=== PATIENT | female | born 1960 | race Caucasian/White ===

== ENCOUNTER → 2016-10-31 | Outpatient (CLI) | payer OTHER | LOC: OD 12:16 | PROVIDERS: ATTEND Physician Assistant | DX: E11.9 Type 2 diabetes mellitus without complications (principal); M19.072 Primary osteoarthritis, left ankle and foot ==

== ENCOUNTER → 2017-03-07 | Outpatient (CLI) | payer OTHER ==
--- NOTE | 2017-03-07 11:08 | WOMENS IMAGING REPORT ---
EXAM DESCRIPTION: BILAT SCREENING MAMMO W/CAD COMPLETED DATE/TIME: 03/07/2017 10:08 am REASON FOR STUDY: ROUTINE SCREENING; Z12.31 Z12.31 ENCNTR SCREEN MAMMOGRAM FOR MALIGNANT NEOPLASM O F RADHA COMPARISON: Multiple since 2008 TECHNIQUE: Standard craniocaudal and mediolateral oblique views of each breast recorded using Ti Knighta l acquisition. LIMITATIONS: None. FINDINGS: Findings present which are benign by mammographic criteria. No suspicious masses, calcifi cations or architectural distortion. Pertinent benign findings: Stable bilateral breast parenchymal calcifications, stable small bilateral breast parenchymal cysts or intramammary lymph nodes. Read with the assistance of CAD. .[facility] - R2 Cenova Version 1.3 .[facility] - R2 Cenova Version 1.3 .[facility] - R2 Cenova Version 2.4 .[facility] - R2 Cenova Version 2.4 .[facility] - R2 Intermodal Owner Operator Truck Driver Version 9.2 Benign mammographic findings may include one or more of the following: Smooth masses, popcorn/rim/co arse calcifications, asymmetries, post-procedure changes, and lesions with long-standing stability. IMPRESSION: BENIGN MAMMOGRAPHIC FINDINGS. BIRADS 2 BREAST DENSITY: a. The breasts are almost entirely fatty. BIRAD: 2 BENIGN FINDING(S) RECOMMENDATION: ROUTINE SCREENING Please consider bilateral screening tomosynthesis in February 2018 COMMENT: The patient has been notified of the results by letter per MQSA requirements. Additional no tification policies are in place for contacting patient with suspicious or incomplete findings. Quality ID #[id number]: The [employer] recommends an annual screening mammogram for women aged 40 years or over. This facility utilizes a reminder system to ensure that all patients receive reminder letters, and/or direct phone calls for appointments. This includes reminders for routine scr eening mammograms, diagnostic mammograms, or other Breast Imaging Interventions when appropriate. Th is patient will be placed in the appropriate reminder system. The [employer] (ACR) has developed recommendations for screening MRI of the breast s in certain patient populations, to be used in conjunction with mammography. Breast MRI surveillanc e may be appropriate for women with more than 20% lifetime risk of developing breast cancer as deter mined by genetic testing, significant family history of the disease, or history of mantle radiation f or Hodgkins Disease. ACR Practice Guidelines 2008. TECHNICAL DOCUMENTATION: FINDING NUMBER: (1) ASSESSMENT: (1) JOB ID: [id number] [facility] [employer]- All Rights Reserved
== END ==
LOC: WI 09:50
PROVIDERS: ATTEND Physician Assistant
DX: Z12.31 Encounter for screening mammogram for malignant neoplasm of breast (principal)
CPT/HCPCS: 77067; G0202

== ENCOUNTER 2018-05-12 15:53 | Inpatient (IN) | payer MEDICARE, OTHER ==
[2018-05-12] MEDS ORDERED: MORPHINE SULFATE 10 MG/ML INJ IV PRN (16:35)
[2018-05-12] MEDS ORDERED: 1/2 NORMAL SALINE 1,000 ML IV PRN (16:37)
[2018-05-12] MEDS ORDERED: DEXTROSE 40% GEL 15 GM TUBE PO PRN ×5 (16:40→19:13)
[2018-05-12] MEDS ORDERED: GLUCAGON,HUMAN RECOMB 1 MG INJ IM PRN ×2 (16:40→17:28)
[2018-05-12] MEDS ORDERED: DEXTROSE 50%-WATER 25 GM/50 ML DISP.SYRIN IV PRN ×4 (16:40→19:13)
--- NOTE | 2018-05-12 16:48 | PDOC H&P ---
History of Present Illness Admission Date/PCP: 05/12/18 15:53 DOMINICK PONCE MD Patient complains of: Abdominal wall abscess History of Present Illness: GINA BIGGS is a 57 year old female 57 yo female presenting today with right ground abscess x 1 week. PMH HTN, HLD, DM, OA, immune disorder. R groin abscess. Patient states she has had intense itching in the groin area from Jardiance. She is unsure if she scratched herself or if it's from sweat accumulation. It has been getting worse and is now tender, warm, with white purulence. Denies any fever or other constitutional symptoms. She has tried warm compresses and Neosporin without any improvement. DM: Is being followed by measurement supervisor as A1c is 9.2 and not controlled. Was increased Lantus 50 to 58 BID. On Bydureon 2mg. Is supposed to also be on Jardiance, however, has not been taking it due to intense groin itching. All other chronic conditions are stable. Denies any chest pain, SOB, abdominal pain, or other symptoms. Patient seen by Dr. Theodora Mejia and decided to admit in the hospital for further surgical interventions Past Medical History Cardiac Medical History: Reports: Hyperlipidema, Hypertension Endocrine Medical History: Reports: Diabetes Mellitus Type 2 Musculoskeltal Medical History: Reports: Arthritis Past Surgical History Past Surgical History: Reports: Tubal Ligation Social History Information Source: Patient Smoking Status: Unknown if Ever Smoked Frequency of Alcohol Use: None Hx Recreational Drug Use: No Hx Prescription Drug Abuse: No Family History Family History: Reviewed & Not Pertinent Parental Family History Reviewed: Yes Children Family History Reviewed: Yes Sibling(s) Family History Reviewed.: Yes Medication/Allergy Allergies/Adverse Reactions: lisinopril Allergy (Unverified 05/12/18 16:27) Review of Systems Constitutional: ABSENT: chills, fever(s), headache(s), weight gain, weight loss Eyes: ABSENT: visual disturbances Ears: ABSENT: hearing changes Cardiovascular: ABSENT: chest pain, dyspnea on exertion, edema, orthropnea, palpitations Respiratory: ABSENT: cough, hemoptysis Gastrointestinal: ABSENT: abdominal pain, constipation, diarrhea, hematemesis, hematochezia, nausea, vomiting Genitourinary: ABSENT: dysuria, hematuria Musculoskeletal: ABSENT: joint swelling Integumentary: ABSENT: rash, wounds Neurological: ABSENT: abnormal gait, abnormal speech, confusion, dizziness, focal weakness, syncope Psychiatric: ABSENT: anxiety, depression, homidical ideation, suicidal ideation Endocrine: ABSENT: cold intolerance, heat intolerance, menstrual abnormalities, polydipsia, polyuria Hematologic/Lymphatic: ABSENT: easy bleeding, easy bruising, lymphadenopathy Physical Exam General appearance: PRESENT: no acute distress, well-developed, well-nourished Head exam: PRESENT: atraumatic, normocephalic Eye exam: PRESENT: conjunctiva pink, EOMI, PERRLA. ABSENT: scleral icterus Ear exam: PRESENT: normal external ear exam Mouth exam: PRESENT: moist, tongue midline Neck exam: PRESENT: full ROM. ABSENT: carotid bruit, JVD, lymphadenopathy, thyromegaly Respiratory exam: PRESENT: clear to auscultation mariann Cardiovascular exam: PRESENT: RRR. ABSENT: diastolic murmur, rubs, systolic murmur Pulses: PRESENT: normal dorsalis pedis pul, +2 pedal pulses bilateral Vascular exam: PRESENT: normal capillary refill GI/Abdominal exam: PRESENT: normal bowel sounds, soft. ABSENT: distended, guarding, mass, organolmegaly, rebound, tenderness Additonal comments: Right-sided abdominal wall significant redness swelling and a draining pus is present Rectal exam: PRESENT: deferred Extremities exam: ABSENT: pedal edema Musculoskeletal exam: PRESENT: ambulatory Neurological exam: PRESENT: alert, awake, oriented to person, oriented to place , oriented to time, oriented to situation, CN II-XII grossly intact. ABSENT: motor sensory deficit Psychiatric exam: PRESENT: appropriate affect, normal mood. ABSENT: homicidal ideation, suicidal ideation Skin exam: PRESENT: dry, intact, warm. ABSENT: cyanosis, rash Assessment & Plan - Diagnosis (1) Abdominal wall cellulitis Is this a current diagnosis for this admission?: Yes Plan: That the patient on IV antibiotic IV pain medications follow with the surgery (2) Type 2 diabetes mellitus Qualifiers: Diabetes mellitus roasterman insulin use: unspecified fpc insulin use status Is this a current diagnosis for this admission?: Yes Plan: Continues to current medication and sliding scale with [facility] protocol (3) Hypertension Qualifiers: Hypertension type: essential hypertension Qualified Code(s): I10 - Essential (primary) hypertension Is this a current diagnosis for this admission?: Yes Plan: Continues current medications (4) Hyperlipidemia Qualifiers: Hyperlipidemia type: unspecified Qualified Code(s): E78.5 - Hyperlipidemia , unspecified Is this a current diagnosis for this admission?: Yes (5) Morbid obesity Is this a current diagnosis for this admission?: Yes - Time Time Spent: 30 to 50 Minutes Medications reviewed and adjusted accordingly: Yes Anticipated discharge: Home Within: Other - Inpatient Certification Based on my medical assessment, after consideration of the patient's comorbidities, presenting symptoms, or acuity I expect that the services needed warrant INPATIENT care.: Yes I certify that my determination is in accordance with my understanding of Medicare's requirements for reasonable and necessary INPATIENT services [42 CFR 412.3e].: Yes Medical Necessity: Significant Comorbidiites Make Outpatient Treatment Too Risky , Need For IV Fluids, Need for IV Antibiotics Post Hospital Care: D/C Financial Services Technician Documentation - Plan Summary Plan Summary: Admit in the hospitalFollow with surgery
[2018-05-12 17:10] LABS: ABSOLUTE BASOPHILS # (AUTO) 0.1 10^3/uL (0.0-0.2); ABSOLUTE EOSINOPHILS # (AUTO) 0.3 10^3/uL (0.0-0.6); ABSOLUTE LYMPHOCYTES (AUTO) 2.3 10^3/uL (0.5-4.7); ABSOLUTE MONOCYTES (AUTO) 0.8 10^3/uL (0.1-1.4); ABSOLUTE NEUT (AUTO) 8.2 10^3/uL (1.7-8.2); BASOPHILS % (AUTO) 1.1 % (0-2); HEMATOCRIT 42.9 % (36.0-47.0); HEMOGLOBIN 14.2 g/dL (12.0-15.5); LYMPHOCYTES % (AUTO) 19.5 % (13-45); MEAN CORPUSCULAR HEMOGLOBIN 26.1 pg (27.0-33.4); MEAN CORPUSCULAR HGB CONC 33.2 g/dL (32.0-36.0); MEAN CORPUSCULAR VOLUME 79 fl (80-97); MONOCYTES % (AUTO) 7.2 % (3-13); PLATELET COUNT 313 10^3/uL (150-450); RED BLOOD COUNT 5.46 10^6/uL (3.72-5.28); RED CELL DISTRIBUTION WIDTH 15.1 % (11.5-14.0); SEGMENTED NEUTROPHILS % (AUTO) 69.2 % (42-78); TOTAL CELLS COUNTED % (AUTO) 100 %; WHITE BLOOD COUNT 11.8 10^3/uL (4.0-10.5)
[2018-05-12] MEDS ORDERED: DEXTROSE 50%-WATER SYRINGE 12.5 GM/25 ML DOSE IV PRN (17:28)
[2018-05-12] MEDS ORDERED: DEXTROSE 40% GEL 15 GM TUBE X 2 PO PRN (17:28)
[2018-05-12] MEDS ORDERED: DEXTROSE 50%-WATER SYRINGE 25 GM/50 ML DOSE IV PRN (17:28)
[2018-05-12 17:32] LABS: ALANINE AMINOTRANSFERASE 25 U/L (9-52); ALBUMIN 3.7 g/dL (3.5-5.0); ALKALINE PHOSPHATASE 82 U/L (38-126); ANION GAP 14 (5-19); ASPARTATE AMINO TRANSFERASE 17 U/L (14-36); BILIRUBIN,DIRECT 0.2 mg/dL (0.0-0.4); BILIRUBIN,TOTAL 0.6 mg/dL (0.2-1.3); BLOOD UREA NITROGEN 21 mg/dL (7-20); CALCIUM 9.6 mg/dL (8.4-10.2); CARBON DIOXIDE 26 mmol/L (22-30); CHLORIDE 101 mmol/L (98-107); GLUCOSE 124 mg/dL (75-110); POTASSIUM 3.9 mmol/L (3.6-5.0); SODIUM 141.3 mmol/L (137-145); TOTAL PROTEIN 6.7 g/dL (6.3-8.2)
--- NOTE | 2018-05-12 18:32 | EKG REPORT ---
SEVERITY:- ABNORMAL ECG - SINUS RHYTHM LEFT AXIS DEVIATION PROBABLE LEFT VENTRICULAR HYPERTROPHY CONSIDER ANTERIOR INFARCT BORDERLINE PROLONGED QT INTERVAL : Confirmed by: Paul Childs MD 12-May-2018 18:31:42
[2018-05-12] MEDS ORDERED: GLUCAGON,HUMAN RECOMB 1 MG INJ SUBCUT PRN (19:13)
[2018-05-12] MEDS: AMPICILLIN SODIUM/SULBACTAM NA 3 GM in NORMAL SALINE 100 ML IV SCH (19:19)
[2018-05-12 19:48] LABS: APPEARANCE,URINE CLEAR; BILIRUBIN,URINE NEGATIVE (NEGATIVE); COLOR,URINE STRAW; GLUCOSE, URINE NEGATIVE (NEGATIVE); KETONES,URINE NEGATIVE (NEGATIVE); LEUKOCYTE ESTERASE,URINE TRACE (NEGATIVE); NITRITE,URINE NEGATIVE (NEGATIVE); PROTEIN,URINE NEGATIVE (NEGATIVE); URINE SPECIFIC GRAVITY 1.008; UROBILINOGEN,URINE NEGATIVE mg/dL (<2.0)
[2018-05-12] MEDS: HYDROXYCHLOROQUINE SULFATE 200 MG TABLET PO SCH (22:42)
[2018-05-12] MEDS: INSULIN LISPRO 100 UNIT/ML 3 ML VIAL SUBCUT SCH (22:44)
[2018-05-13] MEDS: AMPICILLIN SODIUM/SULBACTAM NA 3 GM in NORMAL SALINE 100 ML IV SCH ×4 (00:20→17:38)
[2018-05-13] MEDS: INSULIN LISPRO 100 UNIT/ML 3 ML VIAL SUBCUT SCH ×3 (06:38→23:06)
[2018-05-13] MEDS ORDERED: ONDANSETRON HCL INJ/PF 4 MG/2 ML SDV ONE (08:31)
[2018-05-13] MEDS ORDERED: KETOROLAC TROMETHAMINE 60 MG/2 ML SDV ONE (08:31)
[2018-05-13] MEDS ORDERED: GLYCOPYRROLATE 1 MG/5 ML SYRINGE ONE (08:31)
[2018-05-13] MEDS ORDERED: METOCLOPRAMIDE HCL INJ/PF 10 MG/2 ML SDV ONE (08:31)
[2018-05-13] MEDS: INSULIN GLARGINE,HUM.REC.ANLOG 300 UNIT/3 ML INSULN.PEN SUBCUT SCH (08:33)
[2018-05-13] MEDS ORDERED: (PENDING PHARMACY ID) (Fexofenadine Hcl [Allegra Allergy] 180 MG) PO SCH (10:00)
[2018-05-13] MEDS ORDERED: METOPROLOL SUCCINATE 50 MG TAB.SR.24H PO SCH (10:00)
[2018-05-13] MEDS ORDERED: (PENDING PHARMACY ID) (Empagliflozin [Jardiance] 25 MG) PO SCH (10:00)
[2018-05-13] MEDS: HYDROCHLOROTHIAZIDE 25 MG TABLET PO SCH (10:15)
[2018-05-13] MEDS: LORATADINE 10 MG TABLET PO SCH (10:15)
[2018-05-13] MEDS: METOPROLOL SUCCINATE 50 MG TAB.SR.24H PO SCH (10:16)
[2018-05-13] MEDS: HYDROXYCHLOROQUINE SULFATE 200 MG TABLET PO SCH ×2 (10:17→23:06)
--- NOTE | 2018-05-13 10:44 | PDOC PROGRESS REPORT ---
Subjective Progress Note for:: 05/13/18 Subjective:: Patient is feeling much better Patient's pain under control Scheduled for the surgery Reason For Visit: ENCOUNTER FOR OTHER PREPROCEDURAL EXAMINATION Physical Exam Vital Signs: Temp Pulse Resp BP Pulse Ox 97.7 F 81 16 121/73 92 05/13/18 07:55 05/13/18 07:55 05/13/18 07:55 05/13/18 07:55 05/13/18 07:55 Intake & Output 05/12/18 05/13/18 05/14/18 06:59 06:59 06:59 Intake Total 700 100 Output Total 1000 Balance -300 100 Weight 134.6 kg General appearance: PRESENT: no acute distress, well-developed, well-nourished Head exam: PRESENT: atraumatic, normocephalic Eye exam: PRESENT: conjunctiva pink, EOMI, PERRLA. ABSENT: scleral icterus Ear exam: PRESENT: normal external ear exam Mouth exam: PRESENT: moist, tongue midline Neck exam: PRESENT: full ROM. ABSENT: carotid bruit, JVD, lymphadenopathy, thyromegaly Respiratory exam: PRESENT: clear to auscultation mariann Cardiovascular exam: PRESENT: RRR. ABSENT: diastolic murmur, rubs, systolic murmur Pulses: PRESENT: normal dorsalis pedis pul, +2 pedal pulses bilateral Vascular exam: PRESENT: normal capillary refill GI/Abdominal exam: PRESENT: normal bowel sounds, soft. ABSENT: distended, guarding, mass, organolmegaly, rebound, tenderness Additonal comments: Right lower abdominal area redness Rectal exam: PRESENT: deferred Neurological exam: PRESENT: alert, awake, oriented to person, oriented to place , oriented to time, oriented to situation, CN II-XII grossly intact. ABSENT: motor sensory deficit Psychiatric exam: PRESENT: appropriate affect, normal mood. ABSENT: homicidal ideation, suicidal ideation Skin exam: PRESENT: dry, intact, warm. ABSENT: cyanosis, rash Results Laboratory Results: 05/12/18 16:05 05/12/18 16:05 05/12/18 05/12/18 05/12/18 16:05 16:05 19:25 WBC 11.8 H RBC 5.46 H Hgb 14.2 Hct 42.9 MCV 79 L MCH 26.1 L MCHC 33.2 RDW 15.1 H Plt Count 313 Seg Neutrophils % 69.2 Lymphocytes % 19.5 Monocytes % 7.2 Eosinophils % 3.0 Basophils % 1.1 Absolute Neutrophils 8.2 Absolute Lymphocytes 2.3 Absolute Monocytes 0.8 Absolute Eosinophils 0.3 Absolute Basophils 0.1 Sodium 141.3 Potassium 3.9 Chloride 101 Carbon Dioxide 26 Anion Gap 14 BUN 21 H Creatinine 1.07 Est GFR ( Amer) > 60 Est GFR (Non-Af Amer) 52 L Glucose 124 H Calcium 9.6 Total Bilirubin 0.6 AST 17 ALT 25 Alkaline Phosphatase 82 Total Protein 6.7 Albumin 3.7 Urine Color STRAW Urine Appearance CLEAR Urine pH 5.0 Ur Specific [place] 1.008 Urine Protein NEGATIVE Urine Glucose (UA) NEGATIVE Urine Ketones NEGATIVE Urine Blood NEGATIVE Urine Nitrite NEGATIVE Ur Leukocyte Esterase TRACE H Urine WBC (Auto) 2 Urine RBC (Auto) 1 Assessment & Plan - Diagnosis (1) Abdominal wall cellulitis Is this a current diagnosis for this admission?: Yes Plan: That the patient on IV antibiotic IV pain medications follow with the surgery (2) Type 2 diabetes mellitus Qualifiers: Diabetes mellitus technician terminal and repeater insulin use: unspecified technician terminal and repeater insulin use status Is this a current diagnosis for this admission?: Yes Plan: Continues to current medication and sliding scale with [facility] protocol (3) Hypertension Qualifiers: Hypertension type: essential hypertension Qualified Code(s): I10 - Essential (primary) hypertension Is this a current diagnosis for this admission?: Yes Plan: Continues current medications (4) Hyperlipidemia Qualifiers: Hyperlipidemia type: unspecified Qualified Code(s): E78.5 - Hyperlipidemia , unspecified Is this a current diagnosis for this admission?: Yes (5) Morbid obesity Is this a current diagnosis for this admission?: Yes - Time Time Spent with patient: 15-24 minutes Medications reviewed and adjusted accordingly: Yes Anticipated discharge: Other Within: Other - Inpatient Certification Based on my medical assessment, after consideration of the patient's comorbidities, presenting symptoms, or acuity I expect that the services needed warrant INPATIENT care.: Yes I certify that my determination is in accordance with my understanding of Medicare's requirements for reasonable and necessary INPATIENT services [42 CFR 412.3e].: Yes Medical Necessity: Need For IV Fluids, Need for IV Antibiotics, Need for Surgery Post Hospital Care: D/C Employment Recruiter Documentation - Plan Summary Plan Summary: Follow with the surgery continues to current medication
[2018-05-13] MEDS ORDERED: BUPIVACAINE HCL 0.5 % INJ/PF 30 ML SDV ONE (13:27)
[2018-05-13] MEDS ORDERED: LIDOCAINE 0.5% INJ-PF (5 MG/ML) 50 ML SDV ONE (13:27)
[2018-05-13] MEDS ORDERED: BACITRACIN INJ 50,000 UNIT VIAL ONE (13:27)
[2018-05-13] MEDS ORDERED: KETAMINE HCL INJ 500 MG/10 ML VIAL ONE (13:34)
[2018-05-13] MEDS ORDERED: LIDOCAINE 2% INJ-PF (20 MG/ML) 10 ML AMPUL ONE (13:34)
[2018-05-13] MEDS ORDERED: FENTANYL CITRATE INJ/PF 100 MCG/2 ML AMPUL ONE (13:34)
[2018-05-13] MEDS ORDERED: PROPOFOL INJ 200 MG/20 ML VIAL IV ONE ×2 (13:35)
[2018-05-13] MEDS ORDERED: MIDAZOLAM 2 MG/2 ML INJ ONE (13:35)
[2018-05-13] MEDS ORDERED: ACETAMINOPHEN 1,000 MG/100 ML RTUPB IV ONE (13:35)
--- NOTE | 2018-05-13 14:46 | Operative Report ---
Operative Report DATE OF SURGERY: 05/13/18 PREOPERATIVE DIAGNOSIS: 1. Abdominal wall abscess. 2. Obesity. 3. Diabetes mellitus type 2. 4. Hypertension. POSTOPERATIVE DIAGNOSIS: 1. Abdominal wall abscess. 2. Obesity. 3. Diabetes mellitus type 2. 4. Hypertension. OPERATION: Debridement of abdominal wall abscess. SURGEON: AUNDREA MORENO SPREADER: None. ANESTHESIA: LMAC TISSUE REMOVED OR ALTERED: Necrotic skin and subcutaneous tissues. COMPLICATIONS: None. ESTIMATED BLOOD LOSS: 5 mL. INTRAOPERATIVE FINDINGS: Indication: This patient, diabetic with increased body mass index has cellulitis and infected necrosis of the abdominal wall. It seems to be confined to the skin and subcutaneous tissues. Debridement is necessary with preparation for deeper debridement if it proves to involve deeper tissues. The goal is to avoid serious or morbid extension of infection. Findings: Of necrotic skin and subcutaneous tissues for a diameter of about 3 cm in the right lower abdomen. Situated on the pannus. Necrosis and infection extended to the subcutaneous tissues. After debridement the remaining tissues were healthy looking. No remaining necrosis or obvious infection. PROCEDURE: PROCEDURE: The abdomen was prepared with [Betadine] and draped out with sterile linen. After the"universal time-out", in which it was confirmed that the patient [did receive antibiotic], the procedure commenced. The patient was appropriately anesthetized. With local anesthesia to supplement sedation. The wound was probed. . The wound was debrided of non viable tissue using[ cautery] with removal of loose debris, as well. The wound was irrigated with [ Peroxide] .Cultures of tissue were now taken and sent.The wound was now irrigated with peroxide, then saline and [Surgicel] placed within it, dressed with [Kerlix] and the procedure concluded.
[2018-05-13] MEDS ORDERED: 1/2 NORMAL SALINE 1,000 ML IV PRN (15:00)
[2018-05-13] MEDS ORDERED: PROMETHAZINE HCL INJ 25 MG/1 ML VIAL IV PRN ×2 (15:20)
[2018-05-13] MEDS ORDERED: ONDANSETRON HCL INJ/PF 4 MG/2 ML SDV IV PRN (15:20)
[2018-05-13] MEDS ORDERED: MEPERIDINE HCL/PF INJ 25 MG/1 ML DISP.SYRIN IV PRN (15:20)
[2018-05-13] MEDS ORDERED: DIPHENHYDRAMINE HCL 50 MG/ML VIAL IV PRN (15:20)
[2018-05-13] MEDS ORDERED: FENTANYL CITRATE INJ/PF 100 MCG/2 ML AMPUL IV PRN ×3 (15:20)
[2018-05-14] MEDS: AMPICILLIN SODIUM/SULBACTAM NA 3 GM in NORMAL SALINE 100 ML IV SCH ×3 (01:41→11:49)
[2018-05-14] MEDS: INSULIN LISPRO 100 UNIT/ML 3 ML VIAL SUBCUT SCH ×2 (06:32→13:53)
[2018-05-14] MEDS: INSULIN GLARGINE,HUM.REC.ANLOG 300 UNIT/3 ML INSULN.PEN SUBCUT SCH (08:02)
[2018-05-14] MEDS: HYDROCHLOROTHIAZIDE 25 MG TABLET PO SCH (10:22)
[2018-05-14] MEDS: METOPROLOL SUCCINATE 50 MG TAB.SR.24H PO SCH (10:25)
[2018-05-14] MEDS: LORATADINE 10 MG TABLET PO SCH (10:25)
[2018-05-14] MEDS: HYDROXYCHLOROQUINE SULFATE 200 MG TABLET PO SCH (10:25)
--- NOTE | 2018-05-14 12:12 | PDOC DISCHARGE SUMMARY ---
General - Admit/Disc Date/PCP Admission Date/Primary Care Provider: 05/12/18 15:53 DOMINICK PONCE MD Discharge Date: 05/14/18 - Discharge Diagnosis (1) Abdominal wall cellulitis Is this a current diagnosis for this admission?: Yes Summary: Status post incision and drainage follow with the general surgery continues to p.o. antibiotic (2) Type 2 diabetes mellitus Is this a current diagnosis for this admission?: Yes Summary: Currently all stable continues to current medications (3) Hypertension Is this a current diagnosis for this admission?: Yes Summary: Currently all stable cut down the dose of the matter probably due to the patient 's blood pressures in the lower end (4) Hyperlipidemia Is this a current diagnosis for this admission?: Yes Summary: Currently all stable (5) Morbid obesity Is this a current diagnosis for this admission?: Yes - Additional Information Resuscitation Status: Full Code Discharge Activity: Activity As Tolerated Prescriptions: Amox Tr/Potassium Clavulanate [Augmentin 875-125 mg Tablet] 1 tab PO BID #14 tablet L. Acidophilus/L.bulgaricus [Lactobacillus Tablet] 1 each PO BID #14 tablet Home Medications: Exenatide Microspheres [Bydureon Pen] 2 mg SQ TH@10 05/12/18 Fexofenadine HCl [Tianna Allergy] 180 mg PO DAILY 05/12/18 Hydroxychloroquine Sulfate [Plaquenil 200 mg Tablet] 200 mg PO Q12 05/12/18 Insulin Glargine,Hum.rec.anlog [Lantus Solostar] 58 unit SQ QHS 05/12/18 Amox Tr/Potassium Clavulanate [Augmentin 875-125 mg Tablet] 1 tab PO BID #14 tablet 05/14/18 L. Acidophilus/L.bulgaricus [Lactobacillus Tablet] 1 each PO BID #14 tablet 01/22 Metoprolol Succinate [Toprol Xl 50 mg Tab.sr] 25 mg PO DAILY #0 05/14/18 History of Present Illness History of Present Illness: GINA BIGGS is a 57 year old female 57 yo female presenting today with right ground abscess x 1 week. PMH HTN, HLD, DM, OA, immune disorder. R groin abscess. Patient states she has had intense itching in the groin area from Jardiance. She is unsure if she scratched herself or if it's from sweat accumulation. It has been getting worse and is now tender, warm, with white purulence. Denies any fever or other constitutional symptoms. She has tried warm compresses and Neosporin without any improvement. DM: Is being followed by oversize load pilot escort as A1c is 9.2 and not controlled. Was increased Lantus 50 to 58 BID. On Bydureon 2mg. Is supposed to also be on Jardiance, however, has not been taking it due to intense groin itching. All other chronic conditions are stable. Denies any chest pain, SOB, abdominal pain, or other symptoms. Patient seen by Dr. Theodora Mejia and decided to admit in the hospital for further surgical interventions Hospital Course Hospital Course: This is a 57-year-old female present in the office because of the abdominal wall cellulitis and abscess and patient was directly admitting in the hospital from the surgical office and underwent for the incision and drainage and patient is currently doing much better Patient was initially put on IV antibiotics and the patient stopped the surgeries switch to the p.o. antibiotic and according to the surgeon Dr. Theodora Johnston patients can discharge her following office tomorrow with him to dressing change And also expressed to go Ló[place] while she is doing better patient's p.o. intake is fair patients walk around in the hallway without any problems patient's remained afebrile blood work is all stable Patient is discharged home with the stable conditions follow outpatient in 1 week in my office patient also see oversize load pilot escort as outpatient Physical Exam Vital Signs: Temp Pulse Resp BP Pulse Ox 97.4 F 72 16 112/64 90 L 05/14/18 00:19 05/14/18 00:19 05/14/18 00:19 05/14/18 00:19 05/14/18 00:19 Intake & Output 05/13/18 05/14/18 05/15/18 06:59 06:59 06:59 Intake Total 700 1621 100 Output Total 1000 2060 Balance -300 -439 100 Weight 134.6 kg 134.6 kg General appearance: PRESENT: no acute distress, well-developed, well-nourished Head exam: PRESENT: atraumatic, normocephalic Eye exam: PRESENT: conjunctiva pink, EOMI, PERRLA. ABSENT: scleral icterus Ear exam: PRESENT: normal external ear exam Mouth exam: PRESENT: moist, tongue midline Neck exam: PRESENT: full ROM. ABSENT: carotid bruit, JVD, lymphadenopathy, thyromegaly Respiratory exam: PRESENT: clear to auscultation mariann Cardiovascular exam: PRESENT: RRR. ABSENT: diastolic murmur, rubs, systolic murmur Pulses: PRESENT: normal dorsalis pedis pul, +2 pedal pulses bilateral Vascular exam: PRESENT: normal capillary refill GI/Abdominal exam: PRESENT: normal bowel sounds, soft. ABSENT: distended, guarding, mass, organolmegaly, rebound, tenderness Additonal comments: Abdominal wall on the right side the dressing is intact Rectal exam: PRESENT: deferred Extremities exam: ABSENT: pedal edema Musculoskeletal exam: PRESENT: ambulatory Neurological exam: PRESENT: alert, awake, oriented to person, oriented to place , oriented to time, oriented to situation, CN II-XII grossly intact. ABSENT: motor sensory deficit Psychiatric exam: PRESENT: appropriate affect, normal mood. ABSENT: homicidal ideation, suicidal ideation Skin exam: PRESENT: dry, intact, warm. ABSENT: cyanosis, rash Results Laboratory Results: 05/12/18 16:05 05/12/18 16:05 Qualifiers - * PATIENT BEING DISCHARGED WITH ANY OF THE FOLLOWING DIAGNOSIS: No VTE patient discharged on overlapping Therapy?: Yes Plan Time Spent: Greater than 30 Minutes - Follow with the general surgery tomorrow morning continues to current medications continues to p.o. antibiotic
[2018-05-14 13:36] VITALS: BP 127/64
[2018-05-15] MEDS ORDERED: (PENDING PHARMACY ID) (Exenatide Microspheres [Bydureon Pen] 2 MG) SQ SCH (10:00)
--- NOTE | 2018-06-05 13:11 | OPERATIVE REPORT E ---
Operative Report NAME: GINA BIGGS : 1960 AGE: 57Y DATE OF SURGERY: 05/13/2018 ROOM: [id number] ADDENDUM: OPERATIVE PROCEDURE: Sharp, excisional, surgical debridement of abdominal wall wound. DICTATING PHYSICIAN: AUNDREA PUENTES M.D. [id number] PHY#: [id number] ID: [id number] JOB#: [id number] ACCT: [id number] cc:AUNDREA PUENTES M.D. >
== END 2018-05-14 14:40 | disposition home or self-care (01) | DRG 571 ==
LOC: 4N 15:53
PROVIDERS: ADMIT Family Medicine; ATTEND Family Medicine
PROC: 0JB80ZZ Excision of Abdomen Subcutaneous Tissue and Fascia, Open Approach (ICD-10-PCS; principal; 2018-05-13 13:45)
PROC: 3E02340 Introduction of Influenza Vaccine into Muscle, Percutaneous Approach (ICD-10-PCS; 2018-05-14)
DX: L03.311 Cellulitis of abdominal wall (principal); Z68.41 Body mass index [BMI] 40.0-44.9, adult; I96 Gangrene, not elsewhere classified; E11.628 Type 2 diabetes mellitus with other skin complications; L02.211 Cutaneous abscess of abdominal wall; M19.90 Unspecified osteoarthritis, unspecified site; I10 Essential (primary) hypertension; E11.65 Type 2 diabetes mellitus with hyperglycemia; E78.5 Hyperlipidemia, unspecified; T38.3X6A Underdosing of insulin and oral hypoglycemic [antidiabetic] drugs, initial encounter; E66.01 Morbid (severe) obesity due to excess calories; Z79.84 Long term (current) use of oral hypoglycemic drugs; Z23 Encounter for immunization; Z91.128 Patient's intentional underdosing of medication regimen for other reason
CPT/HCPCS: 36415; 400; 80048; 80076; 81001; 82962; 85025; 87070; 87075; 87077; 87186; 87205; 90471; 90686; 93005; 93010; G0008; G0378; G0379; J0131; J0295; J1815; J1885; J2250; J2405; J2704; J2765; J3010; J3490

== ENCOUNTER → 2018-05-12 | Outpatient (CLI) | payer MEDICARE, OTHER ==
[2018-05-12 12:33] LABS: ABSOLUTE BASOPHILS # (AUTO) 0.1 10^3/uL (0.0-0.2); ABSOLUTE EOSINOPHILS # (AUTO) 0.3 10^3/uL (0.0-0.6); ABSOLUTE LYMPHOCYTES (AUTO) 2.3 10^3/uL (0.5-4.7); ABSOLUTE MONOCYTES (AUTO) 0.7 10^3/uL (0.1-1.4); ABSOLUTE NEUT (AUTO) 7.7 10^3/uL (1.7-8.2); BASOPHILS % (AUTO) 1.1 % (0-2); EOSINOPHILS % (AUTO) 2.8 % (0-6); HEMOGLOBIN 14.6 g/dL (12.0-15.5); LYMPHOCYTES % (AUTO) 20.9 % (13-45); MEAN CORPUSCULAR HEMOGLOBIN 26.3 pg (27.0-33.4); MEAN CORPUSCULAR HGB CONC 33.2 g/dL (32.0-36.0); MEAN CORPUSCULAR VOLUME 79 fl (80-97); MONOCYTES % (AUTO) 6.3 % (3-13); PLATELET COUNT 273 10^3/uL (150-450); RED BLOOD COUNT 5.54 10^6/uL (3.72-5.28); RED CELL DISTRIBUTION WIDTH 14.9 % (11.5-14.0); SEGMENTED NEUTROPHILS % (AUTO) 68.9 % (42-78); TOTAL CELLS COUNTED % (AUTO) 100 %; WHITE BLOOD COUNT 11.1 10^3/uL (4.0-10.5)
[2018-05-12 12:50] LABS: ANION GAP 15 (5-19); BLOOD UREA NITROGEN 21 mg/dL (7-20); CALCIUM 9.6 mg/dL (8.4-10.2); CARBON DIOXIDE 26 mmol/L (22-30); CHLORIDE 101 mmol/L (98-107); GLUCOSE 187 mg/dL (75-110); POTASSIUM 4.2 mmol/L (3.6-5.0); SODIUM 142.4 mmol/L (137-145)
== END ==
LOC: OD 11:40
PROVIDERS: ATTEND Family Medicine
DX: L03.311 Cellulitis of abdominal wall (principal)
CPT/HCPCS: 36415; 80048; 85025

== ENCOUNTER → 2019-06-22 | Outpatient (CLI) | payer MEDICARE, OTHER ==
--- NOTE | 2019-06-22 15:23 | WOMENS IMAGING REPORT ---
EXAM DESCRIPTION: 3D SCREENING MAMMO BILAT COMPLETED DATE/TIME: 06/22/2019 7:55 am REASON FOR STUDY: Z12.31 ENCOUNTER FOR SCREENING MAMMOGRAM FOR MALIGNANT NEOPLASM OF BREAST Z12.31 ENCNTR SCREEN MAMMOGRAM FOR MALIGNANT NEOPLASM OF RADHA COMPARISON: Multiple since 2008 EXAM PARAMETERS: Views: Standard craniocaudal and mediolateral oblique views of each breast recorded using digital acquisition and breast tomosynthesis. Read with the assistance of CAD. .[facility] - [employer] Examining Chair Assembler Version 9.2 LIMITATIONS: None. FINDINGS: No suspicious masses, suspicious calcifications or architectural distortion. No areas of c oncern. IMPRESSION: NEGATIVE MAMMOGRAM. BIRADS 1. BREAST DENSITY: a. The breasts are almost entirely fatty. BIRAD: ASSESSMENT: 1 NEGATIVE RECOMMENDATION: ROUTINE SCREENING Please continue yearly bilateral screening mammography/tomosynthesis in June 2020 COMMENT: The patient has been notified of the results by letter per MQSA requirements. Additional no tification policies are in place for contacting patient with suspicious or incomplete findings. Quality ID #[id number]: The [employer] recommends an annual screening mammogram for women aged 40 years or over. This facility utilizes a reminder system to ensure that all patients receive reminder letters, and/or direct phone calls for appointments. This includes reminders for routine scr eening mammograms, diagnostic mammograms, or other Breast Imaging Interventions when appropriate. Th is patient will be placed in the appropriate reminder system. TECHNICAL DOCUMENTATION: FINDING NUMBER: (1) ASSESSMENT: (1) JOB ID: [id number] [employer]- All Rights Reserved Reading location - IP/workstation name: [email or web address]
== END ==
LOC: WI 07:34
PROVIDERS: ATTEND Physician Assistant
DX: Z12.31 Encounter for screening mammogram for malignant neoplasm of breast (principal)
CPT/HCPCS: 77063; 77067

== ENCOUNTER → 2020-07-07 | Outpatient (CLI) | payer MEDICARE, OTHER ==
--- NOTE | 2020-07-07 10:17 | WOMENS IMAGING REPORT ---
EXAM DESCRIPTION: BILAT SCREENING MAMMO W/CAD IMAGES COMPLETED DATE/TIME: 07/07/2020 8:41 am REASON FOR STUDY: Z12.31 ENCOUNTER FOR SCREENING MAMMOGRAM FOR MALIGNANT NEOPLASM OF BREAST Z12.31 ENCNTR SCREEN MAMMOGRAM FOR MALIGNANT NEOPLASM OF RADHA COMPARISON: Priors dating back to 2013 EXAM PARAMETERS: Standard craniocaudal and mediolateral oblique views of each breast recorded using digital acquisition. Read with the assistance of CAD. .FORMERLY [facility] - [employer] Leader Version 9.2 LIMITATIONS: None. FINDINGS: No suspicious masses, suspicious calcifications or architectural distortion. No areas of c oncern. IMPRESSION: NEGATIVE MAMMOGRAM. BIRADS 1 BREAST DENSITY: b. There are scattered areas of fibroglandular density. BIRAD: ASSESSMENT: 1 NEGATIVE RECOMMENDATION: ROUTINE SCREENING COMMENT: The patient has been notified of the results by letter per MQSA requirements. Additional no tification policies are in place for contacting patient with suspicious or incomplete findings. Quality ID #[id number]: The [employer] recommends an annual screening mammogram for women aged 40 years or over. This facility utilizes a reminder system to ensure that all patients receive reminder letters, and/or direct phone calls for appointments. This includes reminders for routine scr eening mammograms, diagnostic mammograms, or other Breast Imaging Interventions when appropriate. Th is patient will be placed in the appropriate reminder system. TECHNICAL DOCUMENTATION: FINDING NUMBER: (1) ASSESSMENT: (1) JOB ID: [id number] 2010 [employer]- All Rights Reserved Reading location - IP/workstation name: [email or web address]
== END ==
LOC: WI 08:02
PROVIDERS: ATTEND Physician Assistant
DX: Z12.31 Encounter for screening mammogram for malignant neoplasm of breast (principal)
CPT/HCPCS: 77067